=== PATIENT | male | born 1945 | race Caucasian/White ===

== ENCOUNTER 2017-07-28 09:37 | Emergency (ER) | payer MEDICARE, OTHER ==
[~2017-07-28] VITALS: Ht 175.3 cm; Wt 70.0 kg
[~2017-07-28 09:37] MED LIST: ASPI81 PO; GLIP5TAB8 PO; GLUCTAB PO; SIMV20TA PO
[2017-07-28 09:48] VITALS: BP 165/86; PULSE 104; RESP 18; TEMP 98.4; O2SAT 96
[2017-07-28] MEDS ORDERED: ASPI81CH CHEW (10:06)
[2017-07-28] MEDS ORDERED: METF1000 PO (10:06)
[2017-07-28] MEDS ORDERED: SIMV20TA PO (10:06)
[2017-07-28] MEDS ORDERED: GLIP5TAB8 PO (10:06)
[2017-07-28] MEDS ORDERED: KETOROLAC TROMETHAMINE 30 MG/ML (IVP) VIAL IV PUSH ONE (10:15)
[2017-07-28] MEDS ORDERED: SODIUM CHLORID 0.9% 500 ML INJ 500 ML IV ONE (10:15)
[2017-07-28] MEDS ORDERED: ONDANSETRON HCL 4 MG/2 ML VIAL IV PUSH ONE (10:15)
[2017-07-28] MEDS ORDERED: MORPHINE SULFATE 4 MG/ML INJ IV PUSH ONE (10:15)
--- NOTE | 2017-07-28 10:20 | PD ---
HPI Chief Complaint: Pain: Acute or Chronic Time Seen by Provider: 09:51 Travel History International Travel<30 days: No Contact w/Intl Traveler<30days: No Traveled to known affect area: No History of Present Illness HPI The patient is a 72-year-old male who presents emergency department for left flank pain. The patient states he works out on a regular basis, was on his knees yesterday, working on the floors, and this morning developed severe anterior left thigh pain. The pain is worse with flexion left hip and raise in the left leg, alleviated at rest. He denies any numbness, tingling, or coolness to the left lower extremity. The patient denies any back pain, hip pain, or pain inferior to the knee. The pain is located over the anterior aspect the medial aspect left thigh and is worse with palpation and movement. He denies any fever, chills, or sweats. He denies any direct trauma to the leg , however, does state he was working on his floors yesterday. The patient's primary physician is Dr. Leiva. [facility] Past Medical History Hx Anticoagulant Therapy: Yes Arthritis: Yes Cancer: No Cardiovascular Problems: No High Cholesterol: Yes Diabetes: Yes Endocrine: No Genitourinary: No Hepatitis: No Hiatal Hernia: No Immune Disorder: No Musculoskeletal: Yes (ARTHRITIS) Neurologic: No Psychiatric: No Reproductive: No Respiratory: No Thyroid Disease: No Past Surgical History Abdominal Surgery: Yes (APPENDECTOMY ; 04/10 LAP ASCENDING COLECTOMY) Body Medical Devices: NONE Joint Replacement: No Pacemaker: No Social History Alcohol Use: No Tobacco Use: No Substance Use: No Allergies-Medications (Allergen,Severity, Reaction): Coded Allergies: latex (Unverified Allergy, Unknown, 07/28/17) Reported Meds & Prescriptions Reported Meds & Active Scripts Active Reported Glipizide 5 Mg Tab 5 Mg PO DAILY Take 30 minutes before a meal Metformin (Metformin HCl) 1,000 Mg Tab 1,000 Mg PO DAILY With a meal Aspirin 81 Mg Chew 81 Mg CHEW DAILY Simvastatin 20 Mg Tab 20 Mg PO DAILY Review of Systems Except as stated in HPI: all other systems reviewed are Neg General / Constitutional: No: Fever Cardiovascular: No: Chest Pain or Discomfort Respiratory: No: Shortness of Breath Gastrointestinal: No: Nausea, Vomiting, Abdominal Pain Musculoskeletal: Positive: Myalgias, Pain Neurologic: No: Paresthesia, Sensory Disturbance Physical Exam Narrative GENERAL: Awake, alert, very pleasant 72-year-old male who appears his stated age and is in no acute respiratory distress. SKIN: Focused skin assessment warm/dry. HEAD: Atraumatic. Normocephalic. EYES: No injection or drainage. ENT: No nasal bleeding or discharge. Mucous membranes pink and moist. NECK: Trachea midline. No JVD. GASTROINTESTINAL: Abdomen soft, non-tender, nondistended. MUSCULOSKELETAL: Patient has pain with flexion left hip. Patient is able to plantarflex and dorsiflex left ankle without difficulty. Limited ability to extend and flex at the left knee secondary to pain over the anterior left thigh. Mild tenderness to palpation of the anterior aspect left thigh. Left femoral pulse is bounding. Left dorsalis pedal pulses bounding. There is no coolness to left lower extremity and no mottling noted. Back: No tenderness over the thoracic or lumbar vertebrae. No tenderness of the sacroiliac. Minimal tenderness of the left sciatic area. NEUROLOGICAL: Awake and alert. No obvious cranial nerve deficits. Motor grossly within normal limits. Normal speech. Sensation is intact of the medial , lateral, dorsal aspect of the left foot. PSYCHIATRIC: Appropriate mood and affect; insight and judgment normal. Data Data Last Documented VS Vital Signs Date Time Temp Pulse Resp B/P (MAP) Pulse Ox O2 Delivery O2 Flow Rate FiO2 07/28/17 09:48 98.4 104 18 165/86 (112) 96 Orders Orders Complete Blood Count With Diff (07/28/17 10:12) Comprehensive Metabolic Panel (07/28/17 10:12) Creatine Kinase (Cpk) (07/28/17 10:12) Lactic Acid (07/28/17 10:12) Sodium Chlorid 0.9% 500 Ml Inj (Ns 500 M (07/28/17 10:15) Ketorolac Inj (Toradol Inj) (07/28/17 10:15) Morphine Inj (Morphine Inj) (07/28/17 10:15) Ondansetron Inj (Zofran Inj) (07/28/17 10:15) Labs Laboratory Tests Test 07/28/17 10:35 Blood Urea Nitrogen 17 MG/DL Creatinine 1.10 MG/DL Random Glucose 219 MG/DL Total Protein 8.9 GM/DL Albumin 4.5 GM/DL Calcium Level 9.7 MG/DL Alkaline Phosphatase 70 U/L Aspartate Amino Transf (AST/SGOT) 16 U/L Alanine Aminotransferase (ALT/SGPT) 25 U/L Total Bilirubin 1.3 MG/DL Sodium Level 136 MEQ/L Potassium Level 4.5 MEQ/L Chloride Level 101 MEQ/L Carbon Dioxide Level 27.4 MEQ/L Anion Gap 8 MEQ/L Estimat Glomerular Filtration Rate 66 ML/MIN Lactic Acid Level 1.8 mmol/L Total Creatine Kinase 60 U/L [facility] Medical Decision Making Medical Screen Exam Complete: Yes Emergency Medical Condition: Yes Medical Record Reviewed: Yes Interpretation(s) Laboratory Tests Test 07/28/17 10:35 White Blood Count 11.1 TH/MM3 Red Blood Count 4.55 MIL/MM3 Hemoglobin 13.9 GM/DL Hematocrit 40.8 % Mean Corpuscular Volume 89.7 FL Mean Corpuscular Hemoglobin 30.6 PG Mean Corpuscular Hemoglobin Concent 34.1 % Red Cell Distribution Width 12.9 % Platelet Count 264 TH/MM3 Mean Platelet Volume 8.4 FL Neutrophils (%) (Auto) 80.6 % Lymphocytes (%) (Auto) 9.7 % Monocytes (%) (Auto) 8.8 % Eosinophils (%) (Auto) 0.2 % Basophils (%) (Auto) 0.7 % Neutrophils # (Auto) 8.9 TH/MM3 Lymphocytes # (Auto) 1.1 TH/MM3 Monocytes # (Auto) 1.0 TH/MM3 Eosinophils # (Auto) 0.0 TH/MM3 Basophils # (Auto) 0.1 TH/MM3 CBC Comment DIFF FINAL Differential Comment Blood Urea Nitrogen 17 MG/DL Creatinine 1.10 MG/DL Random Glucose 219 MG/DL Total Protein 8.9 GM/DL Albumin 4.5 GM/DL Calcium Level 9.7 MG/DL Alkaline Phosphatase 70 U/L Aspartate Amino Transf (AST/SGOT) 16 U/L Alanine Aminotransferase (ALT/SGPT) 25 U/L Total Bilirubin 1.3 MG/DL Sodium Level 136 MEQ/L Potassium Level 4.5 MEQ/L Chloride Level 101 MEQ/L Carbon Dioxide Level 27.4 MEQ/L Anion Gap 8 MEQ/L Estimat Glomerular Filtration Rate 66 ML/MIN Lactic Acid Level 1.8 mmol/L Total Creatine Kinase 60 U/L Differential Diagnosis Differential diagnosis includes muscle strain, sprain, rhabdomyolysis, ischemic left leg, neuropathy, medication side effect. Narrative Course IV was established, labs are drawn and sent, and the patient was placed on cardiac telemetry monitoring. The patient was administered Toradol, Zofran, morphine, and IV fluids. CPK and lactic acid were sent to lab. I do not believe this is vascular in origin as patient has great pulses the left lower extremity and there is no coolness noted to the left lower extremity. CPK is normal, no evidence of rhabdomyolysis. Lactic acid is normal. I do not believe this is ischemic in nature, most likely is related to a muscle strain. The patient will be discharged home on nonsteroidal's and pain medication. He is advised to follow-up with his primary physician. Return if symptoms worsen or progress. Diagnosis Primary Impression: Left leg pain Patient Instructions: General Instructions Additional Instructions: Please provide the patient a copy of his labs at discharge. Follow-up with your primary physician. Pain medications as directed. Activity as tolerated. Med/Other Pt SpecificInfo: Prescription(s) given Scripts Hydrocodone-Acetaminophen ([place]) 5-325 mg Tab 1 TAB PO Q6H Y for PAIN, #12 TAB 0 Refills Prov: Eduardo Fleming MD 07/28/17 Ibuprofen (Ibuprofen) 400 Mg Tab 400 MG PO Q6H Y for PAIN SCALE 1 TO 10, #20 TAB 0 Refills Prov: Eduardo Fleming MD 07/28/17 Disposition: 01 DISCHARGE HOME Condition: Stable Eduardo Fleming MD Jul 28, 2017 10:20
[2017-07-28 10:48] LABS: CHLORIDE 101 MEQ/L (98-107); POTASSIUM 4.5 MEQ/L (3.5-5.1); SODIUM (NA) 136 MEQ/L (136-145)
[2017-07-28 10:52] LABS: ANION GAP 8 MEQ/L (5-15); BICARBONATE 27.4 MEQ/L (21.0-32.0); BLOOD UREA NITROGEN 17 MG/DL (7-18)
[2017-07-28 10:55] LABS: ALT (GPT) 25 U/L (12-78); AST (GOT) 16 U/L (15-37); GLOMERULAR FILTRATION RATE 66 ML/MIN (>89)
[2017-07-28 10:57] LABS: TOTAL BILIRUBIN ADULT 1.3 MG/DL (0.2-1.0)
[2017-07-28 10:58] LABS: ALKALINE PHOSPHATASE 70 U/L (45-117)
[2017-07-28 11:17] LABS: CREATINE KINASE 60 U/L (39-308)
[2017-07-28 11:42] LABS: AUTOMATED NEUTROPHIL # 8.9 TH/MM3 (1.8-7.7); BASOPHIL # 0.1 TH/MM3 (0-0.2); BASOPHIL % 0.7 % (0.0-2.0); EOSINOPHIL % 0.2 % (0.0-4.0); HEMATOCRIT 40.8 % (39.0-51.0); LYMPH % 9.7 % (9.0-44.0); LYMPHOCYTE # 1.1 TH/MM3 (1.0-4.8); MEAN CELL VOLUME 89.7 FL (80.0-100.0); MEAN CORPUSCULAR HEMOGLOBIN 30.6 PG (27.0-34.0); MEAN CORPUSCULAR HGB CONC 34.1 % (32.0-36.0); MONO % 8.8 % (0.0-8.0); NEUT % 80.6 % (16.0-70.0); PLATELET COUNT 264 TH/MM3 (150-450); RED BLOOD COUNT 4.55 MIL/MM3 (4.50-5.90); RED CELL DISTRIBUTION WIDTH 12.9 % (11.6-17.2); WHITE BLOOD COUNT 11.1 TH/MM3 (4.0-11.0)
[2017-07-28 11:45] LABS: HEMO FLAGS DIFF FINAL
[2017-07-28] MEDS ORDERED: IBUP400T20 PO (11:48)
[2017-07-28] MEDS ORDERED: NORC5TAB PO (11:48)
[2017-07-28 12:06] VITALS: BP 149/79
== END 2017-07-28 12:10 | disposition home or self-care (01) ==
LOC: PHED 09:37
DX: M79.652 Pain in left thigh (principal); E11.9 Type 2 diabetes mellitus without complications; E78.00 Pure hypercholesterolemia, unspecified; Z79.82 Long term (current) use of aspirin
CPT/HCPCS: 80053; 82550; 83605; 85025; 96374; 96375; 99284; J1885; J2270; J2405; J7040

== ENCOUNTER 2018-01-14 08:43 | Emergency (ER) | payer MEDICARE ==
[~2018-01-14] VITALS: Ht 175.3 cm; Wt 71.0 kg
[~2018-01-14 08:43] MED LIST changes: +ASPI-516 CHEW; -ASPI81 PO; -GLUCTAB PO; +IBUP1TAB5 PO; +METF1000 PO; +NORC5TAB PO
[2018-01-14 08:48] VITALS: BP 158/77; PULSE 62; RESP 16; TEMP 97.3; O2SAT 99
[2018-01-14] MEDS ORDERED: [UNRECOGNIZED DRUG - REMARK] (08:56)
--- NOTE | 2018-01-14 09:47 | PD ---
HPI Chief Complaint: Skin Problem Time Seen by Provider: 08:54 Travel History International Travel<30 days: No Contact w/Intl Traveler<30days: No Traveled to known affect area: No History of Present Illness HPI This is a 73-year-old male who presents for left thumb pain. He states that for the last 2 weeks he has had pain at the base of the left thumb on the palmar aspect. Mild associated edema. No erythema or increased warmth. No fever, chills. The pain is worse with movement. Sore in nature. 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 He is right-hand dominant. He called his primary physician and was sent for x-rays. He states that he had x-rays of his left thumb performed this week at [facility]. He is being referred to a hand specialist. Ibuprofen and Aleve had previously been an alleviating factor. Symptoms are mild in severity. Onset gradual. PFSH Past Medical History Hx Anticoagulant Therapy: Yes Arthritis: Yes Cancer: No Cardiovascular Problems: No High Cholesterol: Yes Diabetes: Yes (type 2 ) Patient Takes Glucophage: Yes Endocrine: No Genitourinary: No Hepatitis: No Hiatal Hernia: No Herniated Disk: Yes Immune Disorder: No Musculoskeletal: Yes (ARTHRITIS) Neurologic: No Psychiatric: No Reproductive: No Respiratory: No Thyroid Disease: No Past Surgical History Abdominal Surgery: Yes (colon polyps removed, herniorrhaphy) Appendectomy: Yes Joint Replacement: No Pacemaker: No Other Surgery: Yes (hernia removed ) Social History Alcohol Use: No Tobacco Use: No Substance Use: No Allergies-Medications (Allergen,Severity, Reaction): Coded Allergies: latex (Unverified Allergy, Unknown, rash, 01/14/18) Reported Meds & Prescriptions Reported Meds & Active Scripts Active Reported [bp med?] Glipizide 5 Mg Tab 5 Mg PO DAILY Take 30 minutes before a meal Metformin (Metformin HCl) 1,000 Mg Tab 1,000 Mg PO DAILY With a meal Aspirin 81 Mg Chew 81 Mg CHEW DAILY Simvastatin 20 Mg Tab 20 Mg PO DAILY Review of Systems General / Constitutional: No: Fever, Chills HENT: No: Sore Throat, Rhinitis Respiratory: No: Cough Gastrointestinal: No: Nausea, Vomiting Musculoskeletal: Positive: Arthralgias, Pain, No: Myalgias, Weakness Skin: No Rash Neurologic: No: Weakness Physical Exam Narrative GENERAL: Alert, well nourished, well appearing patient resting on the bed in no acute distress. Vital Signs reviewed SKIN: Focused skin assessment warm/dry. HEAD: Atraumatic. Normocephalic. EYES: Pupils equal and round. No scleral icterus. No injection or drainage. ENT: No nasal bleeding or discharge. Mucous membranes pink and moist. NECK: Trachea midline. No JVD. Spontaneous, painless full range of motion with no meningismus CARDIOVASCULAR: Regular rate and rhythm. No murmur appreciated. Extremities warm and well perfused with bounding peripheral pulses RESPIRATORY: No accessory muscle use. Clear to auscultation. Breath sounds equal bilaterally. Breathing easily and speaking in full sentences MUSCULOSKELETAL: No obvious deformities. No clubbing. No cyanosis. No edema. Compartments are soft. Left upper extremity: Patient has spontaneous full range of motion of left shoulder, elbow, wrist. There is mild point tenderness at the base of the left thumb on the palmar surface. There is no overlying erythema, increased warmth. No appreciable edema. Patient does have full range of motion of each joint in the left thumb. Normal sensation and capillary refill distal to area of pain. Intact okay, thumbs up, cross finger. Patient has normal strength with forced/opposed flexion and extension of thumb NEUROLOGICAL: Awake and alert. Motor grossly within normal limits. Normal speech. Sensation intact. Normal gait Data Data Last Documented VS Vital Signs Date Time Temp Pulse Resp B/P (MAP) Pulse Ox O2 Delivery O2 Flow Rate FiO2 01/14/18 08:48 97.3 62 16 158/77 (104) 99 MDM Medical Decision Making Medical Screen Exam Complete: Yes Emergency Medical Condition: Yes Medical Record Reviewed: Yes Differential Diagnosis Tendinopathy/tendinitis, overuse syndrome, arthritis, ulnar collateral ligament injury gout, less likely, no evidence of septic joint Narrative Course The patient appears well. He has full range of motion of the left thumb. He has normal strength with flexion and extension of the left thumb. Sensation and capillary refill are intact. There are no overlying skin changes to suggest erythema. I performed a limited bedside ultrasound and did not appreciate any foreign body in the subcutaneous region. The patient had complete thumb x-rays performed within the last week and does not want any imaging repeated. I spoke with him regarding possibility of ulnar collateral ligament injury. I recommended thumb spica splint the patient refuses. I recommended that he not do any lifting with his left hand until he is seen by a hand specialist. He is requesting to leave. Plan for discharge with supportive care and close outpatient follow-up with hand specialist. Patient understands the importance of close outpatient follow-up. He understands he may require further testing and treatment as an outpatient. He understands strict return indications. He is comfortable with this plan and eager to go home. Diagnosis Primary Impression: Thumb tendonitis Referrals: Jose C Diaz III, MD 1 week Patient Instructions: General Instructions, Skier's Thumb (DC) Additional Instructions: We wanted to put your left thumb in a splint by you have refused. Okay to use [id number] splint to immobilize your left thumb. Follow-up with hand surgeon. Okay to use Naprosyn. Return with worsening symptoms. Med/Other Pt SpecificInfo: No Change to Meds Disposition: 01 DISCHARGE HOME Condition: Stable Tahmina Arguello MD Jan 14, 2018 09:47
== END 2018-01-14 09:53 | disposition home or self-care (01) ==
LOC: PHEFT 08:43
DX: M77.9 Enthesopathy, unspecified (principal); E78.00 Pure hypercholesterolemia, unspecified; E11.9 Type 2 diabetes mellitus without complications; M19.90 Unspecified osteoarthritis, unspecified site; Z79.84 Long term (current) use of oral hypoglycemic drugs; Z79.82 Long term (current) use of aspirin; Z79.899 Other long term (current) drug therapy
CPT/HCPCS: 99282

== ENCOUNTER → 2018-04-22 | Day surgery (SDC) | payer MEDICARE ==
[~2018-04-22] VITALS: Ht 175.3 cm; Wt 70.5 kg
[~2018-04-22] MED LIST changes: +CHLORHEXIDINE GLUCONATE 2 % 1 PACK (2 CLOTHS) TOPICAL PRN; +ENAL20TA PO; +GLIM4TAB PO; -GLIP5TAB8 PO; +HYALURONIDASE/LIDOCAINE/BUPIVACAINE 5 ML SYR RIGHT EYE ONE; -IBUP1TAB5 PO; +LACTATED RINGER'S 1000 ML IV PRN; +METOPROLOL TARTRATE 25 MG TAB PO PRN; +MULT-65 PO; -NORC5TAB PO; +POVIDONE IODINE 5% (ANTISEPSIS KIT) 4 APPLICATIONS EACH NARE PRN; +PRAV20TA2 PO; +PROPARACAINE HCL 0.5% OPHT SOLN 15 ML BTL RIGHT EYE ONE; +PROPOFOL 200 MG/20 ML AMP ONE; -SIMV20TA PO; +SODIUM CHLORID 0.9% 500 ML IV PRN; +TOBRAMYCIN/DEXAMETHASONE OPTH OINT 3.5 GM TUBE ONE
[2018-04-22] MEDS: PHENYLEPHRINE HCL 10% OPTH SOLN 5 ML BTL RIGHT EYE SCH ×4 (07:50→08:05)
[2018-04-22] MEDS: CYCLOPENTOLATE HCL 1% OPHT SOLN 2 ML BTL RIGHT EYE SCH ×4 (07:50→08:05)
[2018-04-22] MEDS: FLURBIPROFEN 0.03% OPHT SOLN 2.5 ML BTL RIGHT EYE SCH ×4 (07:50→08:05)
[2018-04-22] MEDS: TROPICAMIDE 1% OPHT SOLN 15 ML BTL RIGHT EYE SCH ×4 (07:50→08:05)
[2018-04-22 07:51] VITALS: PULSE 61
[2018-04-22 08:14] VITALS: PULSE 62
[2018-04-22 09:35] VITALS: BP 160/88; PULSE 57; RESP 16; TEMP 98.1; O2SAT 98
--- NOTE | 2018-04-22 09:57 | MP ---
cc: Eliseo Villegas MD DATE OF OPERATION: 04/22/2018 DATE OF PROCEDURE; 04/22/2018 PREOPERATIVE DIAGNOSIS: Visually significant cataract right eye. POSTOPERATIVE DIAGNOSIS: Visually significant cataract right eye. OPERATION: Phacoemulsification with posterior chamber lens implantation, right eye. SURGEON: Eliseo Villegas MD ANESTHESIA: Retrobulbar with MAC. COMPLICATIONS: None. PROCEDURE: After informed consent was obtained, the patient was brought into the operative suite and placed on appropriate monitors by the Anesthesia Service. The patient had received a prior retrobulbar injection of local anesthetic by the Anesthesia Service in the holding area. The patient's operative eye was then prepped and draped in the usual sterile fashion. A wire lid speculum was placed. A paracentesis incision was made in the peripheral cornea with a 1 mm sandrita keratome. The anterior chamber was filled with viscoelastic. The anterior chamber was then entered through a stepped, clear corneal incision using a sharp 3 mm sandrita keratome. A circular tear capsulorrhexis was then made with a bent needle cystitome. Following hydrodissection of the lens nucleus with balanced saline, phaco-emulsification of the nucleus was performed using a modified chopping technique. The remaining cortex was removed with irrigation/aspiration. The prior two procedures were both performed using the handpieces of the [employer] phaco unit. The capsular bag was then filled with viscoelastic. The intraocular lens was then injected into the capsular bag and positioned. The type of intraocular lens and its power can be found elsewhere in this chart. The remaining viscoelastic was then removed from the anterior chamber with the IA handpiece. The anterior chamber was reformed with balanced saline. The wound was then closed securely with stromal hydration. It was found to be watertight to an intraocular pressure of at least 30 mmHg by palpation. A small amount of balanced salt solution was then removed through the paracentesis site and the intraocular pressure at the end of the case was approximately 20 by palpation. All drapes were then removed. TobraDex ointment was then placed in the eye, which was closed beneath a semi-pressure patch dressing. The patient tolerated this procedure well and left the operating room awake and alert. The patient is to follow-up in my office in the morning. [phone] to [facility] [id number] retrobulbar. Filling all with the right eye now. Eliseo MD [facility] [place] , 09:45 AM , 09:55 AM
== END | disposition home or self-care (01) ==
LOC: PHSDC 06:33
PROVIDERS: ATTEND Optometrist Occupational Vision
DX: H25.811 Combined forms of age-related cataract, right eye (principal); I25.10 Atherosclerotic heart disease of native coronary artery without angina pectoris; E11.9 Type 2 diabetes mellitus without complications; Z79.82 Long term (current) use of aspirin; Z79.84 Long term (current) use of oral hypoglycemic drugs; Z79.01 Long term (current) use of anticoagulants
CPT/HCPCS: 00142; 66984; J7040; V2632